=== PATIENT | male | born 1960 | race Caucasian/White ===

== ENCOUNTER 2018-12-22 08:33 | Inpatient (IN) | payer OTHER ==
[~2018-12-22 08:33] MED LIST: Acetaminophen 325 MG Tab PO SCH; Lactated Ringers 1,000 ML IV SCH; Lidocaine 1%/Sod Bicarbonate in NS 8.4% 1 ML Syringe IDERM PRN; Pregabalin 25 MG Cap PO SCH; Sodium Chloride 0.9% 10 ML Syringe FLUSH PRN; oxyCODONE ER 10 MG TAB.ER PO SCH
[2018-12-22] MEDS ORDERED: Cyclobenzaprine 10 MG Tab PO PRN (08:49)
[2018-12-22] MEDS ORDERED: Morphine 2 MG/ML Syringe IVPUSH PRN (08:50)
[2018-12-22] MEDS ORDERED: Bisacodyl 5 MG Tab PO PRN (08:50)
[2018-12-22] MEDS ORDERED: Propofol 200 MG/20 ML SDV ONE ×3 (09:08→12:20)
[2018-12-22] MEDS ORDERED: Morphine PF 10 MG/10 ML SDV ONE (09:08)
[2018-12-22] MEDS ORDERED: Midazolam 1 MG/ML 2 ML SDV ONE (09:08)
[2018-12-22] MEDS ORDERED: fentaNYL 100 MCG/2 ML SDV ONE (09:08)
[2018-12-22] MEDS ORDERED: Sennosides 8.6 MG Tab PO PRN (10:00)
[2018-12-22] MEDS ORDERED: Ondansetron 4 MG/2 ML SDV IVPUSH PRN (10:00)
[2018-12-22] MEDS ORDERED: Naloxone 0.4 MG/ML SDV IVPUSH PRN (10:00)
--- NOTE | 2018-12-22 10:31 | PCM.PREANE ---
Preanesthetic Assessment - Anesthesia/Transfusion/Family Hx Anesthesia History: Prior Anesthesia Without Reaction Family History of Anesthesia Reaction: No Transfusion History: No Prior Transfusion(s) - Review of Systems General: No Symptoms Pulmonary: No Symptoms Cardiovascular: Dyspnea on Exertion Gastrointestinal: No Symptoms Neurological: Tingling (in hips and legs) Other: Reports: Anxiety - Physical Assessment NPO Status Date: 12/21/18 NPO Status Time: 22:00 Pulse: 76 O2 Sat by Pulse Oximetry: 94 Respiratory Rate: 16 Blood Pressure: 122/81 Temperature: 37.0 C Vital Signs: Last Vital Signs Temp 37.0 C 12/22/18 08:45 Pulse 76 12/22/18 08:45 Resp 16 12/22/18 08:45 BP 122/81 12/22/18 08:45 Pulse Ox 94 L 12/22/18 08:45 Height: 1.78 m Weight: 117.027 kg ASA Class: 2 Mental Status: Alert & Oriented x3 Airway Class: Mallampati = 2 Dentition: Reports: Ivins(s) Thyro-Mental Finger Breadths: 2 Mouth Opening Finger Breadths: 3 ROM/Head Extension: Full Lungs: Clear to Auscultation, Normal Respiratory Effort Cardiovascular: Regular Rate, Regular Rhythm - Lab Values: Laboratory Last Values Blood Type O POSITIVE 12/22/18 09:08 Gel Antibody Screen Negative 12/22/18 09:08 - Imaging/EKG Impressions: EKG SR on chart - Allergies Allergies/Adverse Reactions: Allergies Allergy/AdvReac Type Severity Reaction Status Date / Time tamsulosin [From Flomax] Allergy Dizziness Verified 12/19/18 12:49 - Anesthesia Plan Pre-Op Medication Ordered: None - Acknowledgements Anesthesia Type Planned: Spinal Pt an Appropriate Candidate for the Planned Anesthesia: Yes Alternatives and Risks of Anesthesia Discussed w Pt/Guardian: Yes Pt/Guardian Understands and Agrees with Anesthesia Plan: Yes PreAnesthesia Questionnaire HEENT History: Reports: Impaired Vision, Other (See Below) Other HEENT History: wears glasses Cardiovascular History: Reports: High Cholesterol Respiratory History: Reports: Sleep Apnea Gastrointestinal History: Reports: Other (See Below) Other Gastrointestinal History: c diff history, anal fissures, rectal abcess Genitourinary History: Reports: BPH, Renal Calculus 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 Musculoskeletal History: Reports: Osteoarthritis Neurological History: Reports: None Psychiatric History: Reports: Anxiety, Depression Endocrine/Metabolic History: Reports: Obesity/BMI 30+ Hematologic History: Reports: None Immunologic History: Reports: None Oncologic (Cancer) History: Reports: None Dermatologic History: Reports: None - Infectious Disease History Infectious Disease History: Reports: C-Difficile - Past Surgical History Head Surgeries/Procedures: Reports: None Cardiovascular Surgical History: Reports: None Respiratory Surgical History: Reports: None GI Surgical History: Reports: Colonoscopy Female Surgical History: Reports: None Male Surgical History: Reports: None Endocrine Surgical History: Reports: None Neurological Surgical History: Reports: None Musculoskeletal Surgical History: Reports: None Other Musculoskeletal Surgeries/Procedures:: R hip Oncologic Surgical History: Reports: None Dermatological Surgical History: Reports: None - SUBSTANCE USE Smoking Status *Q: Former Smoker Tobacco Use Within Last Twelve Months: No Second Hand Smoke Exposure: No Days Per Week of Alcohol Use: 2 Number of Drinks Per Day: 2 Total Drinks Per Week: 4 Recreational Drug Use History: No - HOME MEDS Home Medications: Home Meds Sertraline HCl 100 mg PO DAILY 08/01/18 [History] atorvaSTATin Calcium [Lipitor] 20 mg PO DAILY 08/01/18 [History] Acetaminophen [Tylenol] 650 mg PO Q4H PRN 12/19/18 [History] Cholecalciferol (Vitamin D3) [Vitamin D3] 5,000 unit PO DAILY 12/19/18 [History] Meloxicam 15 mg PO DAILY PRN 12/19/18 [History] - CURRENT (IN HOUSE) MEDS Current Meds: Current Medications Acetaminophen (Tylenol) 975 mg PO ONETIME [facility] Stop: 12/22/18 14:00 Last Admin: 12/22/18 09:20 Dose: 975 mg Aspirin (Ecotrin) 325 mg PO BID [facility] Bisacodyl (Dulcolax) 5 mg PO DAILY PRN PRN Reason: Constipation Morphine Sulfate 8 mg/Epinephrine HCl 0.3 mg/Cefuroxime Sodium 750 mg/Ketorolac Tromethamine 30 mg/Sodium Chloride 27.9 ml 0 mg .XX ONETIME ONE Stop: 12/22/18 10:31 Cyclobenzaprine HCl (Flexeril) 10 mg PO TID PRN PRN Reason: Spasms Docusate Sodium (Colace) 100 mg PO BID [facility] Famotidine (Pepcid) 20 mg PO Q12H [facility] Lactated Ringer's (Ringers, Lactated) 1,000 mls @ 125 mls/hr IV ASDIRECTED [facility] Stop: 12/22/18 23:00 Last Admin: 12/22/18 09:10 Dose: 125 mls/hr Cefazolin Sodium/Dextrose 2 gm (/ Premix) 50 mls @ 100 mls/hr IV Q8H [facility] Stop: 12/23/18 10:29 Ketorolac Tromethamine (Toradol) 15 mg IVPUSH Q6H PRN PRN Reason: Pain Lidocaine/Sodium Bicarbonate (Buffered Lidocaine 1% In Ns 8.4%) 0.25 ml IDERM ONETIME PRN PRN Reason: Prior to IV Start Stop: 12/22/18 23:00 Last Admin: 12/22/18 09:09 Dose: 0.25 ml Morphine Sulfate (Morphine) 2 mg IVPUSH Q2H PRN PRN Reason: Breakthrough Pain Naloxone HCl (Narcan) 0.1 mg IVPUSH Q5M PRN PRN Reason: Oversedation Ondansetron HCl (Zofran) 4 mg IVPUSH Q6H PRN PRN Reason: Nausea/Vomiting Oxycodone HCl (Oxycontin) 10 mg PO ONETIME [facility] Stop: 12/22/18 23:00 Last Admin: 12/22/18 09:20 Dose: 10 mg Oxycodone/Acetaminophen (Percocet 325-5 Mg) 1 - 2 tab PO Q4H PRN PRN Reason: Pain Pregabalin (Lyrica) 50 mg PO ONETIME [facility] Stop: 12/22/18 23:00 Last Admin: 12/22/18 09:20 Dose: 50 mg Senna (Senna) 8.6 mg PO BID PRN PRN Reason: Constipation Sodium Chloride (Saline Flush) 10 ml FLUSH ASDIRECTED PRN PRN Reason: Keep Vein Open Stop: 12/22/18 23:00 Discontinued Medications Bupivacaine HCl (Marcaine 0.25%) Confirm Administered Dose 30 ml .ROUTE .STK- MED ONE Stop: 12/22/18 09:53 Cefazolin Sodium (Ancef) Confirm Administered Dose 2 gm .ROUTE .STK-MED ONE Stop: 12/22/18 09:52 Fentanyl (Sublimaze) Confirm Administered Dose 100 mcg .ROUTE .STK-MED ONE Stop: 12/22/18 09:09 Iodine (Iodine 2% Mild Tincture) Confirm Administered Dose 30 ml .ROUTE .STK- MED ONE Stop: 12/22/18 09:52 Midazolam HCl (Versed 1 Mg/Ml) Confirm Administered Dose 2 mg .ROUTE .STK-MED ONE Stop: 12/22/18 09:09 Morphine Sulfate (Duramorph Pf) Confirm Administered Dose 10 mg .ROUTE .STK-MED ONE Stop: 12/22/18 09:09 Propofol (Diprivan 20 Ml) Confirm Administered Dose 600 mg .ROUTE .STK-MED ONE Stop: 12/22/18 09:09 Tranexamic Acid (Cyklokapron) Confirm Administered Dose 1,000 mg .ROUTE .STK- MED ONE Stop: 12/22/18 09:52 Vancomycin HCl (Vancomycin) Confirm Administered Dose 1 gm .ROUTE .STK-MED ONE Stop: 12/22/18 09:52
[2018-12-22] MEDS ORDERED: Lactated Ringers 1,000 ML ONE (11:54)
[2018-12-22] MEDS ORDERED: Ondansetron 4 MG/2 ML SDV ONE (12:00)
[2018-12-22] MEDS ORDERED: Ketorolac 30 MG/ML SDV ONE (12:00)
[2018-12-22] MEDS: Iodine/Sodium Iodide 2% Tincture 30 ML Bottle ONE ×2 (12:31→12:55)
[2018-12-22] MEDS: ceFAZolin 1 GM Vial ONE ×2 (12:32→12:57)
[2018-12-22] MEDS: Morphine 8 MG, EPINEPHrine 0.3 MG, Cefuroxime 750 MG, Ketorolac 30 MG, Sodium Chloride ... ONE ×10 (12:32→13:02)
[2018-12-22] MEDS: Vancomycin 1 GM SDV ONE ×2 (12:33→13:03)
[2018-12-22] MEDS: Bupivacaine 0.25% 30 ML SDV ONE ×2 (12:33→13:03)
--- NOTE | 2018-12-22 13:36 | PCM.POSTAN ---
POST ANESTHESIA ASSESSMENT - MENTAL STATUS Mental Status: Alert, Oriented - VITAL SIGNS Pulse Rate: 63 SaO2: 98 Resp Rate: 12 Blood Pressure: 119/65 Temperature: 36.6 C - RESPIRATORY Respiratory Status: Respiratory Rate WNL, Airway Patent, O2 Saturation Stable, Supplemental Oxygen - CARDIOVASCULAR CV Status: Pulse Rate WNL, Blood Pressure Stable - GASTROINTESTINAL GI Status: No Symptoms - PAIN Pain Score: 0 - POST OP HYDRATION Hydration Status: Adequate & Stable
[2018-12-22] MEDS ORDERED: HYDROmorphone 0.5 MG/0.5 ML Syringe IVPUSH PRN (13:37)
[2018-12-22] MEDS ORDERED: diphenhydrAMINE 50 MG/ML SDV IVPUSH PRN (13:37)
[2018-12-22] MEDS ORDERED: fentaNYL 100 MCG/2 ML SDV IVPUSH PRN (13:37)
--- NOTE | 2018-12-22 14:30 | CR ---
Pelvis and left hip: AP view of the pelvis was obtained in supine projection as well as lateral view of the left hip. Comparison: Prior pelvis and right hip exam of 08/04/18. Left hip prosthesis is seen. Components are aligned. Underlying bony structures are intact. Soft tissue air is noted around the left hip. Stable right hip prosthesis is seen from prior exam. Other bony structures are unremarkable. Impression: 1. Satisfactory postop radiographic appearance of recently placed left hip prosthesis. 2. Stable right hip prosthesis is noted. Diagnostic code #2
[2018-12-22] MEDS: ceFAZolin 2 GM in Premix Bag 1 BAG IV SCH (17:33)
[2018-12-22] MEDS: Acetaminophen/oxyCODONE 325-5 MG Tab PO PRN (20:59)
[2018-12-22] MEDS: Docusate Sodium 100 MG Cap PO SCH (21:01)
[2018-12-22] MEDS: Famotidine 20 MG Tab PO SCH (21:01)
[2018-12-23] MEDS: Ketorolac 15 MG/ML SDV IVPUSH PRN ×2 (02:15→10:00)
[2018-12-23] MEDS: ceFAZolin 2 GM in Premix Bag 1 BAG IV SCH ×2 (02:16→10:07)
[2018-12-23] MEDS: Acetaminophen/oxyCODONE 325-5 MG Tab PO PRN ×3 (02:16→12:37)
--- NOTE | 2018-12-23 06:53 | PCM.CONS ---
H&P History of Present Illness - General Date of Service: 12/23/18 Admit Problem/Dx: Admission Diagnosis/Problem Admission Diagnosis/Problem Osteoarthritis of hip Source of Information: Patient, Old Records, Provider, RN, RN Notes Reviewed History Limitations: Reports: No Limitations - History of Present Illness Initial Comments - Free Text/Narative: Dontae Hoskins is a 58 yo male patient of Dr. Mendez who is post-operative day 1 of left JOSE. Hospital medicine was consulted for post-operative medical care. At this time he is resting comfortably in bed. Pain is controlled. He denies any chest pain, shortness of breath, palpitations, nausea, or vomiting. He carries a history of: HLD, BENI, C. Diff, Anal fissures, Rectal Abscess, BPH, Osteoarthritis, Anxiety, Depression, Obesity. He is a former smoker. He is a full code. His primary care provider is Dr. Aguilar. Left Hip Pain Score (Numeric/FACES): 2 - Related Data Allergies/Adverse Reactions: Allergies Allergy/AdvReac Type Severity Reaction Status Date / Time tamsulosin [From Flomax] AdvReac Dizziness Verified 12/22/18 11:15 Home Medications: Home Meds Sertraline HCl 100 mg PO DAILY 08/01/18 [History] atorvaSTATin Calcium [Lipitor] 20 mg PO DAILY 08/01/18 [History] Cholecalciferol (Vitamin D3) [Vitamin D3] 5,000 unit PO DAILY 12/19/18 [History] Acetaminophen [Tylenol] 650 mg PO Q4H PRN #0 12/22/18 [Rx] Acetaminophen/oxyCODONE [Percocet 325-5 MG] 1 - 2 tab PO Q6H PRN #60 tablet [Rx] Aspirin [Ecotrin] 325 mg PO BID #84 tab.ec 12/22/18 [Rx] Bisacodyl [Dulcolax] 5 mg PO DAILY PRN tablet 12/22/18 [Rx] Cyclobenzaprine [Flexeril] 10 mg PO TID PRN #40 tablet 12/22/18 [Rx] Docusate Sodium [Colace] 100 mg PO BID cap 12/22/18 [Rx] Famotidine [Pepcid] 20 mg PO Q12H tablet 12/22/18 [Rx] Sennosides [Senna] 8.6 mg PO BID PRN tablet 12/22/18 [Rx] Past Medical History HEENT History: Reports: Impaired Vision, Other (See Below) Other HEENT History: wears glasses Cardiovascular History: Reports: High Cholesterol Respiratory History: Reports: Sleep Apnea Gastrointestinal History: Reports: Other (See Below) Other Gastrointestinal History: c diff history, anal fissures with surgical repair, rectal abcess 2011 Genitourinary History: Reports: BPH, Renal Calculus 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 Musculoskeletal History: Reports: Osteoarthritis Neurological History: Reports: None Psychiatric History: Reports: Anxiety, Depression Endocrine/Metabolic History: Reports: Obesity/BMI 30+ Hematologic History: Reports: None Immunologic History: Reports: None Oncologic (Cancer) History: Reports: None Dermatologic History: Reports: None, Eczema - Infectious Disease History Infectious Disease History: Reports: C-Difficile, Chicken Pox - Past Surgical History Head Surgeries/Procedures: Reports: None HEENT Surgical History: Reports: None Cardiovascular Surgical History: Reports: None Respiratory Surgical History: Reports: None GI Surgical History: Reports: Colonoscopy Male Surgical History: Reports: None Endocrine Surgical History: Reports: None Neurological Surgical History: Reports: None Musculoskeletal Surgical History: Reports: None Other Musculoskeletal Surgeries/Procedures:: 07/2018 Oncologic Surgical History: Reports: None Dermatological Surgical History: Reports: None Social & Family History - Family History Family Medical History: Noncontributory Cardiac: Reports: High Cholesterol, [place] Other Cardiac Family History: Heart attack, Oncologic: Reports: Colon, Leukemia Other Oncologic Family History: Son - AML, Sister- colon - Tobacco Use Smoking Status *Q: Never Smoker Used Tobacco, but Quit: Yes Month/Year Tobacco Last Used: 2009 Second Hand Smoke Exposure: No - Caffeine Use Caffeine Use: Reports: Coffee Other Caffeine Use: Daily. - Alcohol Use Days Per Week of Alcohol Use: 3 Number of Drinks Per Day: 2 Total Drinks Per Week: 6 Date of Last Drink: 12/21/18 Time of Last Drink: 18:00 - Recreational Drug Use Recreational Drug Use: No Drug Use in Last 12 Months: No H&P Review of Systems - Review of Systems: Review Of Systems: See Below General: Reports: No Symptoms. Denies: Fever, Chills, Fatigue HEENT: Reports: No Symptoms. Denies: Headaches, Sore Throat Pulmonary: Reports: No Symptoms. Denies: Shortness of Breath, Wheezing, Pleuritic Chest Pain, Cough, Sputum Cardiovascular: Reports: No Symptoms. Denies: Chest Pain, Palpitations, Dyspnea on Exertion, Edema Gastrointestinal: Reports: No Symptoms, Nausea (waxes and wanes - nursing medicating ). Denies: Abdominal Pain, Constipation, Diarrhea, Vomiting Genitourinary: Reports: No Symptoms. Denies: Pain Musculoskeletal: Reports: Leg Pain Skin: Reports: No Symptoms. Denies: Cyanosis Psychiatric: Reports: No Symptoms. Denies: Confusion Neurological: Reports: No Symptoms Hematologic/Lymphatic: Reports: No Symptoms Immunologic: Reports: No Symptoms Exam - Exam Exam: See Below - Vital Signs Vital Signs: Last Vital Signs Temp 97.9 F 12/23/18 05:06 Pulse 73 12/23/18 05:06 Resp 18 12/23/18 05:06 BP 102/50 L 12/23/18 05:06 Pulse Ox 98 12/23/18 05:06 Weight: 262 lb 6.4 oz - Exam Quality Assessment: DVT Prophylaxis General: Alert, Oriented, Cooperative. No: Mild Distress HEENT: Conjunctiva Clear, EACs Clear, EOMI, Hearing Intact, Mucosa Moist & Storla , Normal Nasal Septum, Posterior Pharynx Clear, PERRLA Neck: Supple, Trachea Midline Lungs: Clear to Auscultation, Normal Respiratory Effort Cardiovascular: Regular Rate, Regular Rhythm GI/Abdominal Exam: Normal Bowel Sounds, Soft, Non-Tender, No Organomegaly, No Distention (Male) Exam: Deferred Rectal (Males) Exam: Deferred Back Exam: Normal Inspection, Full Range of Motion Extremities: No Pedal Edema, Normal Capillary Refill, Leg Pain, Limited Range of Motion, Other (Bandage in place on left leg. Bandage is dry and intact. Cooling pack in place. ) Peripheral Pulses: 2+: Radial (L), Radial (R), Dorsalis Pedis (L), Dorsalis Pedis (R) Skin: Warm, Dry, Intact Neurological: Cranial Nerves Intact (grossly ) Neuro Extensive - Mental Status: Alert, Oriented x3, Normal Mood/Affect, Normal Cognition - Patient Data Lab Results Last 24 hrs: Laboratory Results - last 24 hr 12/22/18 12/23/18 12/23/18 Range/Units 09:08 05:37 05:57 WBC 9.62 H (4.23-9.07) K/mm3 RBC 4.05 L (4.63-6.08) M/mm3 Hgb 12.0 L (13.7-17.5) gm/L Hct 36.8 L (40.1-51.0) % MCV 90.9 (79.0-92.2) fl MCH 29.6 (25.7-32.2) pg MCHC 32.6 (32.2-35.5) g/dl RDW Std Deviation 47.8 H (35.1-43.9) fL Plt Count 272 (163-337) K/mm3 MPV 9.3 L (9.4-12.3) fl Sodium 134 L (136-145) mEq/L Potassium 4.0 (3.5-5.1) mEq/L Chloride 101 (98-107) mEq/L Carbon Dioxide 26 (21-32) mEq/L Anion Gap 11.0 (5-15) BUN 10 (7-18) mg/dL Creatinine 0.9 (0.7-1.3) mg/dL Est Cr Clr Drug Dosing 90.12 mL/min Estimated GFR (MDRD) > 60 (>60) mL/min BUN/Creatinine Ratio 11.1 L (14-18) Glucose 110 H (74-106) mg/dL Calcium 8.0 L (8.5-10.1) mg/dL Total Bilirubin 0.6 (0.2-1.0) mg/dL AST 43 H (15-37) U/L ALT 30 (16-63) U/L Alkaline Phosphatase 62 (46-116) U/L Total Protein 5.8 L (6.4-8.2) g/dl Albumin 2.9 L (3.4-5.0) g/dl Globulin 2.9 gm/dL Albumin/Globulin Ratio 1.0 (1-2) Blood Type O POSITIVE Gel Antibody Screen Negative Result Diagrams: 12/23/18 05:57 12/23/18 05:37 Consult PN Assessment/Plan POD#: 1 Procedures: Procedures DRAIN/INJ JOINT/BURSA W/O US (11/07/18) GAIT TRAINING THERAPY (09/02/18) MANUAL THERAPY 1/> REGIONS (09/02/18) MR-STAPH DNA AMP PROBE (12/12/18) NEUROMUSCULAR REEDUCATION (09/02/18) PT EVAL LOW COMPLEX 20 MIN (09/02/18) THERAPEUTIC EXERCISES (09/19/18) (1) S/P total hip arthroplasty SNOMED Code(s): 302389381750, 566402935712 Code(s): Z96.649 - PRESENCE OF UNSPECIFIED ARTIFICIAL HIP JOINT Priority: High Current Visit: Yes Qualifiers: Laterality: left Qualified Code(s): Z96.642 - Presence of left artificial hip joint (2) Osteoarthritis SNOMED Code(s): 553196199 Code(s): M19.90 - UNSPECIFIED OSTEOARTHRITIS, UNSPECIFIED SITE Priority: High Current Visit: Yes Qualifiers: Osteoarthritis location: hip Osteoarthritis type: primary Laterality: left Qualified Code(s): M16.12 - Unilateral primary osteoarthritis, left hip (3) Anxiety SNOMED Code(s): 19558470 Code(s): F41.9 - ANXIETY DISORDER, UNSPECIFIED Priority: Low Current Visit: No (4) BPH (benign prostatic hyperplasia) SNOMED Code(s): 685869898 Code(s): N40.0 - BENIGN PROSTATIC HYPERPLASIA WITHOUT LOWER URINRY TRACT SYMP Priority: Low Current Visit: No Qualifiers: Lower urinary tract symptom presence: unspecified whether lower urinary tract symptoms present Qualified Code(s): N40.0 - Benign prostatic hyperplasia without lower urinary tract symptoms (5) HLD (hyperlipidemia) SNOMED Code(s): 11457157 Code(s): E78.5 - HYPERLIPIDEMIA, UNSPECIFIED Priority: Low Current Visit : No Qualifiers: Hyperlipidemia type: unspecified Qualified Code(s): E78.5 - Hyperlipidemia , unspecified (6) History of Clostridium difficile infection SNOMED Code(s): 742947576, 758687201 Code(s): Z86.19 - PERSONAL HISTORY OF OTHER INFECTIOUS AND PARASITIC DISEASES Priority: Low Current Visit: No (7) BENI (obstructive sleep apnea) SNOMED Code(s): 77567997 Code(s): G47.33 - OBSTRUCTIVE SLEEP APNEA (ADULT) (PEDIATRIC) Priority: Medium Current Visit: No (8) Obesity SNOMED Code(s): 971959211, 527401916 Code(s): E66.9 - OBESITY, UNSPECIFIED Priority: Low Current Visit: No Qualifiers: Obesity type: unspecified obesity type Obesity classification: adult class 2 (BMI 35 - 39.9) Body mass index: BMI 37.0-37.9 Problem List Initiated/Reviewed/Updated: Yes Plan: I/P: Acute: S/P left total hip arthroplasty - post-operative day 1 -DVT prophylaxis and pain management per primary care team -PT/OT -IS/RT -Monitor oxygen saturation -Titrate oxygen as needed -Vital signs stable -Monitor labs -Pre-operative Hgb was 14.3; Now 12.0 -Pre-operative GFR was >90; Now >60 Osteoarthritis of left hip -Pain management per primary care team Chronic: HLD BENI Hx/o C. Diff Anal fissures Rectal Abscess BPH Osteoarthritis Anxiety Depression Obesity Plan: CM for discharge planning GI prophylaxis Home medications as indicated Other orders as listed above Routine AM labs He is a full code. His PCP is Dr. Aguilar From a hospitalist standpoint Dontae is doing well. He has been up ambulating and working with therapies. He has urinated and is off of oxygen. Labs and vital signs remain stable. He was having some minor nausea but nursing medicated for this. His pain is controlled. He will be cleared for discharge pending primary team and PT/OT agreement. Thank you for allowing us to participate in the care of this patient!! Requesting Provider: Dr. Mendez Date Consult Requested: 12/22/18 Reason for Consult: Post-operative medical care Patient History Reviewed: Yes Admission H&P Reviewed: Yes Notified Requestor: Yes Time Spent (in minutes): 40
[2018-12-23] MEDS ORDERED: Aspirin 325 MG Tab.EC PO SCH (09:00)
[2018-12-23] MEDS ORDERED: Simvastatin 20 MG Tab PO SCH (09:00)
[2018-12-23] MEDS ORDERED: Sertraline 50 MG Tab PO SCH (09:00)
[2018-12-23] MEDS ORDERED: Cholecalciferol (Vitamin D3) 5,000 UNIT Tab PO SCH (09:00)
--- NOTE | 2018-12-23 09:19 | PCM48HPAN ---
Post Anesthesia Note - EVALUATION WITHIN 48HRS OF ANESTHETIC Vital Signs in Normal Range: Yes Patient Participated in Evaluation: Yes Respiratory Function Stable: Yes Airway Patent: Yes Cardiovascular Function Stable: Yes Hydration Status Stable: Yes Pain Control Satisfactory: Yes Nausea and Vomiting Control Satisfactory: Yes Mental Status Recovered: Yes (only slept a couple hours last night- sat monitor kept making noise.) Pulse Rate: 73 Resp Rate: 18 Temperature: 97.9 F Blood Pressure: 102/50
--- NOTE | 2018-12-23 09:22 | PCM.OPNOTE ---
- General Post-Op/Procedure Note Date of Surgery/Procedure: 12/22/18 Operative Procedure(s): left total hip arthroplasty Pre Op Diagnosis: left hip osteoarthrosis Post-Op Diagnosis: Same Anesthesia Technique: Local, MAC, Spinal Primary Surgeon: Jose Mendez Anesthesia Provider: Loren Barragan Lockstitch Topstitcher: Jessica Malave Lockstitch Topstitcher: Mindy Villalta EBL in mLs: 400 Complications: None Condition: Good Free Text/Narrative:: Intake & Output 12/22/18 12/23/18 12/23/18 22:59 06:59 14:59 Intake Total 1140 1050 Balance 1140 1050 size 28/48 mdm size 5 stem size 54 cup 28+4
[2018-12-23] MEDS: Famotidine 20 MG Tab PO SCH (10:09)
[2018-12-23] MEDS: Docusate Sodium 100 MG Cap PO SCH (10:09)
--- NOTE | 2018-12-23 11:08 | OR ---
DATE OF OPERATION: 12/22/2018 SURGEON: Jose Mendez MD OPERATION PERFORMED: Left total hip arthroplasty. PREOPERATIVE DIAGNOSIS: Left hip osteoarthrosis. POSTOPERATIVE DIAGNOSIS: Left hip osteoarthrosis. ANESTHESIA: Local MAC with spinal. ANESTHESIA PROVIDER: Loren Barragan. ASSISTANTS: Jessica Malave PA-C and Mindy Villalta LPN. ESTIMATED BLOOD LOSS: 400 mL. COMPLICATIONS: None. CONDITION: Stable. IMPLANTS: 1. Yane size 48/28 +4 MDM components. 2. Yane size 5 Accolade II stem. 3. Yane size 54 mm solid Tritanium acetabular cup. DESCRIPTION OF PROCEDURE: The patient was identified in the preop holding area, where proper site was marked and identified by the surgeon. The patient was taken back to the operating theater, where after adequate anesthesia, the patient was placed in the right lateral decubitus position. Axillary roll was placed. All bony prominences were well padded. Pegs were then placed and well padded. The patient's gluteal fold was parallel to the floor. At this time, the left hip was then sterilely prepped and draped in the usual sterile fashion. OR time-out was performed. The patient received 2 g of IV Ancef. At this time, a standard posterior incision was made centered over the greater trochanter. This was taken down to the IT band and gluteal fascia, which was incised along the incisional length. Short external rotators were identified and takedown of the short external rotators was done from the level of the piriformis down to the lesser trochanter as well as a capsulotomy. At this time, the hip was dislocated. Neck cut was completed. Neck cut was found to be adequate. Attention was turned to the acetabulum. Anterior and posterior acetabular retractors were placed as well as inferior acetabular retractors. There was significant difficulty secondary to the patient's significant musculature as well as depth to the acetabulum, but we were able to achieve good visualization. Circumferential removal of the labrum was done as well as removal of the pulvinar. Starting with a 48 reamer, I was able to ream up to a 54, which was found to have adequate purchase. At this time, a 54 mm Tritanium acetabular cup was impacted into place in roughly 45 degrees of abduction and 10 to 20 degrees of anteversion. The MDM liner was then impacted into place and attention was turned to the femur. Box chisel was used out laterally. Starter awl was placed down the canal. Zero broach was started and broached up to a size 5, which was found to be rotationally and vertically stable. At this time, trial MDM components were then trialed starting with the 0 and then was found to be just a small amount short leg length, so a +4 was then done and was found to have adequate orthodox of leg lengths and was stable throughout range of motion. At this time, the size 5 Accolade II stem was impacted into place and the 28/48 MDM components +4 were then constructed on the back table. These were then impacted on the Accolade II stem. It was found to be stable. At this time, the hip was relocated and was found to be stable throughout range of motion. A 1 L dilute Betadine solution was irrigated through the hip along with 3 L of pulse lavage irrigation with Ancef. Topical tranexamic acid as well as vancomycin powder was then placed and a periarticular injection was then completed. A #2 barbed suture was used for closure of the IT band and gluteal fascia, 2-0 Vicryl was used subcutaneously and Prineo was used for the skin. The patient had a sterile soft dressing applied and was sent to the PACU in stable condition. TRU /[id number]
--- NOTE | 2018-12-23 19:56 | PCM.SURGPN ---
- General Info Date of Service: 12/23/18 POD#: 1 Functional Status: Reports: Pain Controlled, Tolerating Diet, Ambulating, Urinating, Incentive Spirometry, Other (The pt states his is doing well. Therapy reports pt has met inpatient therapy goals.) - Patient Data Vitals - Most Recent: Last Vital Signs Temp 97.9 F 12/23/18 09:19 Pulse 73 12/23/18 09:19 Resp 18 12/23/18 09:19 BP 102/50 L 12/23/18 09:19 Pulse Ox 96 12/23/18 08:50 Weight - Most Recent: 262 lb 6.4 oz I&O - Last 24 Hours: Intake & Output 12/23/18 12/23/18 12/23/18 06:59 14:59 22:59 Intake Total 1050 500 Balance 1050 500 Lab Results Last 24 Hrs: Laboratory Results - last 24 hr 12/23/18 12/23/18 Range/Units 05:37 05:57 WBC 9.62 H (4.23-9.07) K/mm3 RBC 4.05 L (4.63-6.08) M/mm3 Hgb 12.0 L (13.7-17.5) gm/L Hct 36.8 L (40.1-51.0) % MCV 90.9 (79.0-92.2) fl MCH 29.6 (25.7-32.2) pg MCHC 32.6 (32.2-35.5) g/dl RDW Std Deviation 47.8 H (35.1-43.9) fL Plt Count 272 (163-337) K/mm3 MPV 9.3 L (9.4-12.3) fl Sodium 134 L (136-145) mEq/L Potassium 4.0 (3.5-5.1) mEq/L Chloride 101 (98-107) mEq/L Carbon Dioxide 26 (21-32) mEq/L Anion Gap 11.0 (5-15) BUN 10 (7-18) mg/dL Creatinine 0.9 (0.7-1.3) mg/dL Est Cr Clr Drug Dosing 90.12 mL/min Estimated GFR (MDRD) > 60 (>60) mL/min BUN/Creatinine Ratio 11.1 L (14-18) Glucose 110 H (74-106) mg/dL Calcium 8.0 L (8.5-10.1) mg/dL Total Bilirubin 0.6 (0.2-1.0) mg/dL AST 43 H (15-37) U/L ALT 30 (16-63) U/L Alkaline Phosphatase 62 (46-116) U/L Total Protein 5.8 L (6.4-8.2) g/dl Albumin 2.9 L (3.4-5.0) g/dl Globulin 2.9 gm/dL Albumin/Globulin Ratio 1.0 (1-2) Med Orders - Current: Current Medications Discontinued Medications Acetaminophen (Tylenol) 975 mg PO ONETIME [facility] Stop: 12/22/18 14:00 Last Admin: 12/22/18 09:20 Dose: 975 mg Aspirin (Ecotrin) 325 mg PO BID [facility] Last Admin: 12/23/18 10:09 Dose: 325 mg Bisacodyl (Dulcolax) 5 mg PO DAILY PRN PRN Reason: Constipation Bupivacaine HCl (Marcaine 0.25%) Confirm Administered Dose 30 ml .ROUTE .STK- MED ONE Stop: 12/22/18 09:53 Last Admin: 12/22/18 13:03 Dose: 30 ml Cefazolin Sodium (Ancef) Confirm Administered Dose 2 gm .ROUTE .STK-MED ONE Stop: 12/22/18 09:52 Last Admin: 12/22/18 12:57 Dose: 2 gm Cholecalciferol (Vitamin D3) 5,000 unit PO DAILY [facility] Last Admin: 12/23/18 10:10 Dose: 5,000 unit Morphine Sulfate 8 mg/Epinephrine HCl 0.3 mg/Cefuroxime Sodium 750 mg/Ketorolac Tromethamine 30 mg/Sodium Chloride 27.9 ml 0 mg .XX ONETIME ONE Stop: 12/22/18 10:31 Last Admin: 12/22/18 13:02 Dose: 788.3 mg Cyclobenzaprine HCl (Flexeril) 10 mg PO TID PRN PRN Reason: Spasms Diphenhydramine HCl (Benadryl) 25 mg IVPUSH Q6H PRN PRN Reason: itching Stop: 12/22/18 16:00 Docusate Sodium (Colace) 100 mg PO BID [facility] Last Admin: 12/23/18 10:09 Dose: 100 mg Famotidine (Pepcid) 20 mg PO Q12H [facility] Last Admin: 12/23/18 10:09 Dose: 20 mg Fentanyl (Sublimaze) Confirm Administered Dose 100 mcg .ROUTE .STK-MED ONE Stop: 12/22/18 09:09 Fentanyl (Sublimaze) 50 mcg IVPUSH Q5M PRN PRN Reason: pain Stop: 12/22/18 16:00 Hydromorphone HCl (Dilaudid) 0.5 mg IVPUSH Q15M PRN PRN Reason: Pain (severe 7-10) Stop: 12/22/18 16:00 Lactated Ringer's (Ringers, Lactated) 1,000 mls @ 125 mls/hr IV ASDIRECTED [facility] Stop: 12/22/18 23:00 Last Admin: 12/22/18 09:10 Dose: 125 mls/hr Cefazolin Sodium/Dextrose 2 gm (/ Premix) 50 mls @ 100 mls/hr IV Q8H [facility] Stop: 12/23/18 10:29 Last Admin: 12/23/18 10:07 Dose: 100 mls/hr Lactated Ringer's (Ringers, Lactated) Confirm Administered Dose 1,000 mls @ as directed .ROUTE .STK-MED ONE Stop: 12/22/18 11:55 Iodine (Iodine 2% Mild Tincture) Confirm Administered Dose 30 ml .ROUTE .STK- MED ONE Stop: 12/22/18 09:52 Last Admin: 12/22/18 12:55 Dose: 18 ml Ketorolac Tromethamine (Toradol) 15 mg IVPUSH Q6H PRN PRN Reason: Pain Last Admin: 12/23/18 10:00 Dose: 15 mg Ketorolac Tromethamine (Toradol) Confirm Administered Dose 30 mg .ROUTE .STK- MED ONE Stop: 12/22/18 12:01 Lidocaine/Sodium Bicarbonate (Buffered Lidocaine 1% In Ns 8.4%) 0.25 ml IDERM ONETIME PRN PRN Reason: Prior to IV Start Stop: 12/22/18 23:00 Last Admin: 12/22/18 09:09 Dose: 0.25 ml Midazolam HCl (Versed 1 Mg/Ml) Confirm Administered Dose 2 mg .ROUTE .STK-MED ONE Stop: 12/22/18 09:09 Morphine Sulfate (Morphine) 2 mg IVPUSH Q2H PRN PRN Reason: Breakthrough Pain Morphine Sulfate (Duramorph Pf) Confirm Administered Dose 10 mg .ROUTE .STK-MED ONE Stop: 12/22/18 09:09 Naloxone HCl (Narcan) 0.1 mg IVPUSH Q5M PRN PRN Reason: Oversedation Ondansetron HCl (Zofran) 4 mg IVPUSH Q6H PRN PRN Reason: Nausea/Vomiting Last Admin: 12/23/18 08:48 Dose: 4 mg Ondansetron HCl (Zofran) Confirm Administered Dose 4 mg .ROUTE .STK-MED ONE Stop: 12/22/18 12:01 Oxycodone HCl (Oxycontin) 10 mg PO ONETIME [facility] Stop: 12/22/18 23:00 Last Admin: 12/22/18 09:20 Dose: 10 mg Oxycodone/Acetaminophen (Percocet 325-5 Mg) 1 - 2 tab PO Q4H PRN PRN Reason: Pain Last Admin: 12/23/18 12:37 Dose: 2 tab Pregabalin (Lyrica) 50 mg PO ONETIME [facility] Stop: 12/22/18 23:00 Last Admin: 12/22/18 09:20 Dose: 50 mg Propofol (Diprivan 20 Ml) Confirm Administered Dose 600 mg .ROUTE .STK-MED ONE Stop: 12/22/18 09:09 Propofol (Diprivan 20 Ml) Confirm Administered Dose 200 mg .ROUTE .STK-MED ONE Stop: 12/22/18 12:19 Propofol (Diprivan 20 Ml) Confirm Administered Dose 200 mg .ROUTE .STK-MED ONE Stop: 12/22/18 12:21 Senna (Senna) 8.6 mg PO BID PRN PRN Reason: Constipation Sertraline HCl (Zoloft) 100 mg PO DAILY [facility] Last Admin: 12/23/18 10:09 Dose: 100 mg Simvastatin (Zocor) 20 mg PO DAILY [facility] Last Admin: 12/23/18 10:09 Dose: 20 mg Sodium Chloride (Saline Flush) 10 ml FLUSH ASDIRECTED PRN PRN Reason: Keep Vein Open Stop: 12/22/18 23:00 Tranexamic Acid (Cyklokapron) Confirm Administered Dose 1,000 mg .ROUTE .STK- MED ONE Stop: 12/22/18 09:52 Last Admin: 12/22/18 13:04 Dose: 1,000 mg Vancomycin HCl (Vancomycin) Confirm Administered Dose 1 gm .ROUTE .STK-MED ONE Stop: 12/22/18 09:52 Last Admin: 12/22/18 13:03 Dose: 1 gm - Exam Wound/Incisions: Dressing Dry and Intact General: Alert, Cooperative, No Acute Distress Lungs: Normal Respiratory Effort Extremities: Other (NVS intact for BLE. Baltazar's negative.) - Problem List Review Problem List Initiated/Reviewed/Updated: Yes - My Orders Last 24 Hours: Active Orders 24 hr Category Date Time Status Communication Order [RC] DAILY Care 12/23/18 06:21 Active Ready for Discharge [RC] PER UNIT ROUTINE Care 12/23/18 09:35 Active - Assessment Assessment (Free Text/Narrative):: POD#1 - left JOSE - Plan Plan (Free Text/Narrative):: 1. Hgb 12.0. 2. 325mg ASA PO BID, frequent mobility, TEDs. 3. Discharge to home today. 4. Outpatient therapy. The pt's case was discussed with Dr. Mendez.
--- NOTE | 2018-12-23 19:58 | PCM.DCSUM1 ---
Discharge Summary - Hospital Course Brief History: Dontae is a 58 yo male who underwent left JOSE with Dr. Mendez on 12-22. The procedure was completed under spinal anesthesia with sedation. The pt tolerated the procedure well and was admitted to the Medical-Surgical Unit. Medical management was provided by the Hospitalist service. The pt's Hospital course was uneventful. The pt's Hgb on POD#1 was 12.0. On POD#1, 325mg ASA BID was initiated for VTE prophylaxis. SCDs and TEDs were also ordered. A Mepilex dressing was placed at the incision site at the time of surgery and remained clean and dry. The pt participated in P.T. and O.T. and progressed well. He followed the JOSE precautions. The pt was allowed to WBAT. On POD#1, the pt was deemed appropriate to discharge to home with his . Diagnosis: Stroke: No - Discharge Data Discharge Date: 12/23/18 Discharge Disposition: Home, Self-Care 01 Condition: Good - Patient Summary/Data Operative Procedure(s) Performed: left total hip arthroplasty Consults: Consultations 12/22/18 08:49 OT Evaluation and Treatment [CONS] Routine PT Evaluation and Treatment [CONS] Routine 12/22/18 09:01 Consult to Physician [CONS] Routine - Patient Instructions Diet: Usual Diet as Tolerated Activity: Apply Ice, As Tolerated, Elevate Extremity, Full Weight Bearing Activity, Other: Follow the total hip precautions. Driving: Do Not Drive Showering/Bathing: May Shower Wound/Incision Care: Keep Operative Site/Wound Site Clean and Dry, Do NOT Change Dressing Notify Provider of: Fever, Increased Pain, Swelling and Redness, Drainage, Nausea and/or Vomiting Other/Special Instructions: Please get up and moving around EVERY HOUR while awake. This helps to prevent blood clots. Please use your walker and have help with mobility as needed. Take a short walk in your home every hour while awake. Please take 325mg Aspirin TWICE daily. The aspirin is being used for blood clot prevention and not for pain management so please do not miss a dose of the medication. You could use a medication like Zantac or Pepcid and a medication like Prilosec or Nexium to protect your stomach while you are using the aspirin. At home, please complete the exercises that you learned during the Hospital stay. Schedule for physical therapy. Follow the total hip precautions. Use the pain medication as needed. The medication may cause drowsiness and constipation. Contact your primary care provider for instructions if you are constipated. You may use a stool softener like docusate sodium or Colace 100mg twice daily and/or a laxative like Miralax daily for constipation. Increase your water and fiber intake while you are using the pain medication. Discontinue use of the pain medication as soon as able. Please do not use other medications that may cause drowsiness (other pain medications, anxiety pills, cold medications, sleeping pills, etc) while using the prescription pain medication. Do not use alcohol while using the pain medication. Wear the ARIELLE hose during the day and you may remove these at night. Elevate the limb to decrease swelling. Place ice to the area often. Place a towel between your skin and the blue pad. Use the incentive spirometer often. Take deep breaths throughout the day. Please keep the dressing in place until follow-up. Notify the Clinic if the dressing becomes saturated. Increase your protein intake while you are healing. If you have diabetes, please closely monitor your blood sugars and notify your primary care provider with abnormal values. Elevated blood sugars increases the risk of infection. Call the Clinic with questions or concerns - [phone]. - Discharge Plan *PRESCRIPTION DRUG MONITORING PROGRAM REVIEWED*: No *COPY OF PRESCRIPTION DRUG MONITORING REPORT IN PATIENT KVNG: No Prescriptions/Med Rec: Acetaminophen/oxyCODONE [Percocet 325-5 MG] 1 - 2 tab PO Q6H PRN #60 tablet PRN Reason: Pain Aspirin [Ecotrin] 325 mg PO BID #84 tab.ec Cyclobenzaprine [Flexeril] 10 mg PO TID PRN #40 tablet PRN Reason: Spasms Home Medications: Home Meds Sertraline HCl 100 mg PO DAILY 08/01/18 [History] atorvaSTATin Calcium [Lipitor] 20 mg PO DAILY 08/01/18 [History] Cholecalciferol (Vitamin D3) [Vitamin D3] 5,000 unit PO DAILY 12/19/18 [History] Acetaminophen [Tylenol] 650 mg PO Q4H PRN #0 12/22/18 [Rx] Acetaminophen/oxyCODONE [Percocet 325-5 MG] 1 - 2 tab PO Q6H PRN #60 tablet [Rx] Aspirin [Ecotrin] 325 mg PO BID #84 tab.ec 12/22/18 [Rx] Bisacodyl [Dulcolax] 5 mg PO DAILY PRN tablet 12/22/18 [Rx] Cyclobenzaprine [Flexeril] 10 mg PO TID PRN #40 tablet 12/22/18 [Rx] Docusate Sodium [Colace] 100 mg PO BID cap 12/22/18 [Rx] Famotidine [Pepcid] 20 mg PO Q12H tablet 12/22/18 [Rx] Sennosides [Senna] 8.6 mg PO BID PRN tablet 12/22/18 [Rx] Patient Handouts: Total Hip Replacement, [id number], Surgical Site Infections FAQs - MITCHELL, Total Hip Replacement, Care After, [id number] Referrals: Jessica Malave PA-C [Physician [employer]ining [employer]er] - 12/30/18 9:00 am (Follow-up with DANNY Osuna on Sunday, December 30, 2018 at 9:00 AM and again on Sunday, January 06, 2019 at 9:00 AM) - Discharge Summary/Plan Comment DC Time >30 min.: No - Patient Data Vitals - Most Recent: Last Vital Signs Temp 97.9 F 12/23/18 09:19 Pulse 73 12/23/18 09:19 Resp 18 12/23/18 09:19 BP 102/50 L 12/23/18 09:19 Pulse Ox 96 12/23/18 08:50 Weight - Most Recent: 262 lb 6.4 oz I&O - Last 24 hours: Intake & Output 12/23/18 12/23/18 12/23/18 06:59 14:59 22:59 Intake Total 1050 500 Balance 1050 500 Lab Results - Last 24 hrs: Laboratory Results - last 24 hr 12/23/18 12/23/18 Range/Units 05:37 05:57 WBC 9.62 H (4.23-9.07) K/mm3 RBC 4.05 L (4.63-6.08) M/mm3 Hgb 12.0 L (13.7-17.5) gm/L Hct 36.8 L (40.1-51.0) % MCV 90.9 (79.0-92.2) fl MCH 29.6 (25.7-32.2) pg MCHC 32.6 (32.2-35.5) g/dl RDW Std Deviation 47.8 H (35.1-43.9) fL Plt Count 272 (163-337) K/mm3 MPV 9.3 L (9.4-12.3) fl Sodium 134 L (136-145) mEq/L Potassium 4.0 (3.5-5.1) mEq/L Chloride 101 (98-107) mEq/L Carbon Dioxide 26 (21-32) mEq/L Anion Gap 11.0 (5-15) BUN 10 (7-18) mg/dL Creatinine 0.9 (0.7-1.3) mg/dL Est Cr Clr Drug Dosing 90.12 mL/min Estimated GFR (MDRD) > 60 (>60) mL/min BUN/Creatinine Ratio 11.1 L (14-18) Glucose 110 H (74-106) mg/dL Calcium 8.0 L (8.5-10.1) mg/dL Total Bilirubin 0.6 (0.2-1.0) mg/dL AST 43 H (15-37) U/L ALT 30 (16-63) U/L Alkaline Phosphatase 62 (46-116) U/L Total Protein 5.8 L (6.4-8.2) g/dl Albumin 2.9 L (3.4-5.0) g/dl Globulin 2.9 gm/dL Albumin/Globulin Ratio 1.0 (1-2) Med Orders - Current: Current Medications Discontinued Medications Acetaminophen (Tylenol) 975 mg PO ONETIME [facility] Stop: 12/22/18 14:00 Last Admin: 12/22/18 09:20 Dose: 975 mg Aspirin (Ecotrin) 325 mg PO BID [facility] Last Admin: 12/23/18 10:09 Dose: 325 mg Bisacodyl (Dulcolax) 5 mg PO DAILY PRN PRN Reason: Constipation Bupivacaine HCl (Marcaine 0.25%) Confirm Administered Dose 30 ml .ROUTE .STK- MED ONE Stop: 12/22/18 09:53 Last Admin: 12/22/18 13:03 Dose: 30 ml Cefazolin Sodium (Ancef) Confirm Administered Dose 2 gm .ROUTE .STK-MED ONE Stop: 12/22/18 09:52 Last Admin: 12/22/18 12:57 Dose: 2 gm Cholecalciferol (Vitamin D3) 5,000 unit PO DAILY [facility] Last Admin: 12/23/18 10:10 Dose: 5,000 unit Morphine Sulfate 8 mg/Epinephrine HCl 0.3 mg/Cefuroxime Sodium 750 mg/Ketorolac Tromethamine 30 mg/Sodium Chloride 27.9 ml 0 mg .XX ONETIME ONE Stop: 12/22/18 10:31 Last Admin: 12/22/18 13:02 Dose: 788.3 mg Cyclobenzaprine HCl (Flexeril) 10 mg PO TID PRN PRN Reason: Spasms Diphenhydramine HCl (Benadryl) 25 mg IVPUSH Q6H PRN PRN Reason: itching Stop: 12/22/18 16:00 Docusate Sodium (Colace) 100 mg PO BID [facility] Last Admin: 12/23/18 10:09 Dose: 100 mg Famotidine (Pepcid) 20 mg PO Q12H [facility] Last Admin: 12/23/18 10:09 Dose: 20 mg Fentanyl (Sublimaze) Confirm Administered Dose 100 mcg .ROUTE .STK-MED ONE Stop: 12/22/18 09:09 Fentanyl (Sublimaze) 50 mcg IVPUSH Q5M PRN PRN Reason: pain Stop: 12/22/18 16:00 Hydromorphone HCl (Dilaudid) 0.5 mg IVPUSH Q15M PRN PRN Reason: Pain (severe 7-10) Stop: 12/22/18 16:00 Lactated Ringer's (Ringers, Lactated) 1,000 mls @ 125 mls/hr IV ASDIRECTED [facility] Stop: 12/22/18 23:00 Last Admin: 12/22/18 09:10 Dose: 125 mls/hr Cefazolin Sodium/Dextrose 2 gm (/ Premix) 50 mls @ 100 mls/hr IV Q8H [facility] Stop: 12/23/18 10:29 Last Admin: 12/23/18 10:07 Dose: 100 mls/hr Lactated Ringer's (Ringers, Lactated) Confirm Administered Dose 1,000 mls @ as directed .ROUTE .STK-MED ONE Stop: 12/22/18 11:55 Iodine (Iodine 2% Mild Tincture) Confirm Administered Dose 30 ml .ROUTE .STK- MED ONE Stop: 12/22/18 09:52 Last Admin: 12/22/18 12:55 Dose: 18 ml Ketorolac Tromethamine (Toradol) 15 mg IVPUSH Q6H PRN PRN Reason: Pain Last Admin: 12/23/18 10:00 Dose: 15 mg Ketorolac Tromethamine (Toradol) Confirm Administered Dose 30 mg .ROUTE .STK- MED ONE Stop: 12/22/18 12:01 Lidocaine/Sodium Bicarbonate (Buffered Lidocaine 1% In Ns 8.4%) 0.25 ml IDERM ONETIME PRN PRN Reason: Prior to IV Start Stop: 12/22/18 23:00 Last Admin: 12/22/18 09:09 Dose: 0.25 ml Midazolam HCl (Versed 1 Mg/Ml) Confirm Administered Dose 2 mg .ROUTE .STK-MED ONE Stop: 12/22/18 09:09 Morphine Sulfate (Morphine) 2 mg IVPUSH Q2H PRN PRN Reason: Breakthrough Pain Morphine Sulfate (Duramorph Pf) Confirm Administered Dose 10 mg .ROUTE .STK-MED ONE Stop: 12/22/18 09:09 Naloxone HCl (Narcan) 0.1 mg IVPUSH Q5M PRN PRN Reason: Oversedation Ondansetron HCl (Zofran) 4 mg IVPUSH Q6H PRN PRN Reason: Nausea/Vomiting Last Admin: 12/23/18 08:48 Dose: 4 mg Ondansetron HCl (Zofran) Confirm Administered Dose 4 mg .ROUTE .STK-MED ONE Stop: 12/22/18 12:01 Oxycodone HCl (Oxycontin) 10 mg PO ONETIME [facility] Stop: 12/22/18 23:00 Last Admin: 12/22/18 09:20 Dose: 10 mg Oxycodone/Acetaminophen (Percocet 325-5 Mg) 1 - 2 tab PO Q4H PRN PRN Reason: Pain Last Admin: 12/23/18 12:37 Dose: 2 tab Pregabalin (Lyrica) 50 mg PO ONETIME [facility] Stop: 12/22/18 23:00 Last Admin: 12/22/18 09:20 Dose: 50 mg Propofol (Diprivan 20 Ml) Confirm Administered Dose 600 mg .ROUTE .STK-MED ONE Stop: 12/22/18 09:09 Propofol (Diprivan 20 Ml) Confirm Administered Dose 200 mg .ROUTE .STK-MED ONE Stop: 12/22/18 12:19 Propofol (Diprivan 20 Ml) Confirm Administered Dose 200 mg .ROUTE .STK-MED ONE Stop: 12/22/18 12:21 Senna (Senna) 8.6 mg PO BID PRN PRN Reason: Constipation Sertraline HCl (Zoloft) 100 mg PO DAILY [facility] Last Admin: 12/23/18 10:09 Dose: 100 mg Simvastatin (Zocor) 20 mg PO DAILY [facility] Last Admin: 12/23/18 10:09 Dose: 20 mg Sodium Chloride (Saline Flush) 10 ml FLUSH ASDIRECTED PRN PRN Reason: Keep Vein Open Stop: 12/22/18 23:00 Tranexamic Acid (Cyklokapron) Confirm Administered Dose 1,000 mg .ROUTE .STK- MED ONE Stop: 12/22/18 09:52 Last Admin: 12/22/18 13:04 Dose: 1,000 mg Vancomycin HCl (Vancomycin) Confirm Administered Dose 1 gm .ROUTE .STK-MED ONE Stop: 12/22/18 09:52 Last Admin: 12/22/18 13:03 Dose: 1 gm
== END 2018-12-23 12:47 | disposition home or self-care (01) | DRG 470 ==
LOC: JD.MS 08:33
PROVIDERS: ADMIT Orthopaedic Surgery; ATTEND Orthopaedic Surgery
PROC: 0SRB0JZ Replacement of Left Hip Joint with Synthetic Substitute, Open Approach (ICD-10-PCS; principal; 2018-12-22)
DX: M16.12 Unilateral primary osteoarthritis, left hip (principal); Z96.641 Presence of right artificial hip joint; F41.9 Anxiety disorder, unspecified; G47.33 Obstructive sleep apnea (adult) (pediatric); N40.1 Benign prostatic hyperplasia with lower urinary tract symptoms; R39.12 Poor urinary stream; E78.2 Mixed hyperlipidemia; E66.9 Obesity, unspecified; F32.9 Major depressive disorder, single episode, unspecified; H54.7 Unspecified visual loss; E78.00 Pure hypercholesterolemia, unspecified; Z87.442 Personal history of urinary calculi; Z79.899 Other long term (current) drug therapy; Z88.8 Allergy status to other drugs, medicaments and biological substances; Z87.891 Personal history of nicotine dependence; Z68.37 Body mass index [BMI] 37.0-37.9, adult; Z79.82 Long term (current) use of aspirin; Z86.19 Personal history of other infectious and parasitic diseases
CPT/HCPCS: 36415; 73501-26-LT; 73501-LT; 80053; 85027; 86850; 86900; 86901; 94760; 94762; 97110-GP; 97116-GP; 97161-GP; 97165-GO; 97535-GO; A9270-GY; C1776; J0171; J0690; J0697; J1885; J2250; J2270; J2405; J2704; J3010; J3370; J3490; J7120